=== PATIENT | male | born 1960 | race Two or more races ===

== ENCOUNTER 2025-03-18 08:10 | Outpatient (CLI) | payer MEDICARE, BC ==
--- NOTE | 2025-03-18 10:20 | RADIOLOGY REPORT ---
PROCEDURE: MR MRI LUMBAR SPINE INDICATION: LUMBAR SPONDYLOSIS, low back pain. Exam Date: 03/18/2025 08:31 AM COMPARISON: None TECHNIQUE: MRI lumbar spine without intravenous contrast. FINDINGS: No fracture or listhesis of the lumbar spine. The conus terminates at L1. There is slight thoracolumb ar scoliosis. L1-L2: There is disc desiccation with slight loss of disc height. There are Schmorl's nodes in the ad jacent endplates. There is a circumferential broad disc bulge with endplate hypertrophy. There is b ilateral facet and ligamentum flavum hypertrophy. No significant spinal canal stenosis. There is mild bilateral neural foraminal stenosis. L2-L3: There is disc desiccation with loss of disc height. Probable vacuum phenomenon in the disc. T here are Schmorl's nodes of the adjacent endplates. There are Modic type 1 and 2 changes of the adjac ent endplates. There is a circumferential broad disc bulge with endplate hypertrophy, most prominent in the left pre foraminal and foraminal regions. There is bilateral facet and ligamentum flavum hyper trophy. The AP dimension of the spinal canal is narrowed to 5 mm, in part related to prominence of t he posterior epidural fat. There is mild right and moderate left neural foraminal stenosis. There is partial effacement of the left lateral recess. L3-L4: There is disc desiccation with loss of disc height. Probable vacuum phenomenon in the disc. Th ere are Schmorl's nodes in the adjacent endplates. There are Modic type 1 and 2 changes in the adjace nt endplates. There is a circumferential broad disc bulge with endplate hypertrophy. There is bilate ral facet and ligamentum flavum hypertrophy. The AP dimension of the spinal canal measures 4.2 mm. T here is partial effacement of the lateral recesses. There is moderate right and mild left neural fora shikha stenosis. L4-L5: There is disc desiccation with loss of disc height. Possible vacuum phenomenon in the disc. Th ere are Modic type 2 changes and morphologic irregularities of the adjacent endplates. There is a ci rcumferential broad disc bulge with endplate hypertrophy, most prominent in the foraminal regions. T here is bilateral facet and ligamentum flavum hypertrophy. The AP dimension of the spinal canal cade ures 5 mm. There is partial effacement of the lateral recesses. There is moderate right and mild lef t neural foraminal stenosis. L5-S1: There is disc desiccation with near-complete loss of disc height. Probable vacuum phenomenon in the disc. There is a circumferential broad disc bulge with endplate hypertrophy, most prominent in the foraminal and lateral regions. There is bilateral facet and ligamentum flavum hypertrophy. The AP dimension of the spinal canal measures 7.5 mm. There is moderate to severe bilateral neural fora shikha stenosis. IMPRESSION: 1. No fracture of the lumbar spine. 2. Advanced degenerative disc disease and facet arthropathy with moderate to severe spinal canal sten osis at L3-L4, moderate spinal canal stenosis at L2-L3 and L4-L5, [id number] spinal canal steno sis at L5-S1. 3. Significant neural foraminal stenosis at L2-L3 on the left, L3-L4 on the right, L4-L5 on the right , and L5-S1 bilaterally. Additionally, there is partial effacement of the lateral recesses bilateral ly at L3-L4 and L4-L5, and on the left at L2-L3. These findings May correspond to lower extremity rad icular symptoms in the left L2, bilateral L3, bilateral L4, and bilateral L5 nerve root distributions .
== END 2025-03-18 23:59 | disposition home or self-care (01) ==
LOC: MRI02 08:10
PROVIDERS: ATTEND Nurse Practitioner
DX: M51.370 Other intervertebral disc degeneration, lumbosacral region with discogenic back pain only (principal); M47.817 Spondylosis without myelopathy or radiculopathy, lumbosacral region; M48.07 Spinal stenosis, lumbosacral region
CPT/HCPCS: 72148

== ENCOUNTER 2025-07-06 13:14 | Emergency (ER) | payer MEDICARE, BC ==
[~2025-07-06] VITALS: Ht 172.7 cm; Wt 102.3 kg
[2025-07-06 13:16] VITALS: TEMP 98.2
--- NOTE | 2025-07-06 13:25 | Physician Documentation ---
History of Present Illness ~ Chief Complaint: Hypertension Stated Complaint: HIGH BLOOD PRESSURE Time Seen by MD: 17:21 HPI Patient is a very pleasant 65-year-old male that presents to the emergency department accompanied by his daughter for evaluation of chest discomfort times 4-5 months. Patient denies any shortness the breath chest pain with radiation but just a pressure almost like a heartburn per patient. Patient reports he has a history of hypertension although he has not taken any antihypertensives for 2- 3 years. Patient reports that he has a significant caffeine tobacco and Zyn pouch user. Patient denies any illicit drugs or significant alcohol consumption at this time. Patient denies fever chills nausea vomiting diarrhea at this time. Medication Reconciliation Allergies: Coded Allergies: No Known Allergies (Unverified , 07/06/25) Physical Exam Vital Signs: Temperature: 98.2, Source: Temporal, Heart Rate: 72, Respiratory Rate: 18, BP: 238/132, Pulse Oximetry: 98, Weight: 102.300 Oxygen Flow Rate: 0 Progress Progress Note Doctor Ac I evaluated this patient after being seen for medical screening exam. He initially presented with chest pain and elevated blood pressure however when I see him he tells me that he told staff that he had chest pain so he can get seen sooner. He denies any chest pain at all he has asymptomatic hypertension which he has been noticing at home and he is concerned with his upcoming back surgery that he had will have to have his surgery deferred. He does not have a primary care physician. Is not on any antihypertensives. He was a heavy tobacco user however has cut back over the last few years in his now smoking 2 cigarettes a day and using 1 can was in daily. He is happy with his nicotine progress. He denies any heavy alcohol use. He is on no medications. Results/Orders Results/Orders Orders - MIGUEL WITT MD Chest,Single View (07/06/25 14:06) Monitor (07/06/25 13:23) Saline Lock (07/06/25 13:23) Oxygen (07/06/25 13:23) Completed Orders - MIGUEL WITT MD Chest,Single View (07/06/25 14:06) Cbc/Diff (07/06/25 13:23) BMP (07/06/25 13:23) PBNP (07/06/25 13:23) Electrocardiogram (07/06/25 13:23) Hs Troponin I W Calculations (07/06/25 13:23) Hs Troponin I W Calculations (07/06/25 15:23) Hs Troponin I W Calculations (07/06/25 16:23) Vital Signs 07/06/25 07/06/25 07/06/25 13:16 16:38 16:42 Temp 98.2 Pulse 72 67 Resp 18 18 19 B/P (MAP) 238/132 211/121 (151) Pulse Ox 98 98 O2 Flow Rate 0 0 Laboratory Tests Test 07/06/25 13:32 07/06/25 15:42 07/06/25 16:41 White Blood Count 6.7 Red Blood Count 4.86 Hemoglobin 15.5 Hematocrit 46.6 Mean Corpuscular Volume 96.0 Mean Corpuscular Hemoglobin 31.9 H Mean Corpuscular Hemoglobin Concent 33.3 Red Cell Distribution Width 14.8 H Platelet Count 159 Mean Platelet Volume 7.4 Neutrophils (%) (Auto) 54.4 Lymphocytes (%) (Auto) 29.4 Monocytes (%) (Auto) 12.8 H Eosinophils (%) (Auto) 2.3 Basophils (%) (Auto) 1.1 H Neutrophils # (Auto) 3.6 Lymphocytes # (Auto) 2.0 Monocytes # (Auto) 0.9 Eosinophils # (Auto) 0.2 Basophils # (Auto) 0.1 CBC Comment Sodium Level 139 Potassium Level 4.3 Chloride Level 103 Carbon Dioxide Level 29.0 Anion Gap 7 L Blood Urea Nitrogen 19 H Creatinine 0.96 Estimated GFR/1.73 m2 78 BUN/Creatinine Ratio 19.8 Glucose Level 112 H Calcium Level 9.1 Troponin I High Sensitivity 12 15 17 Pro-B-Type Natriuretic Peptide 110 Albumin 4.1 Chemistry Comments Troponin I High Sens Percent Delta 25 13 Troponin I Hi Sens Absolute Change 3 2 EKG/XRAY/CT/US/VASC/MRI EKG : Additional Comment EKG independently interpreted by myself time 1:24 p.m. indication reported chest pain normal sinus rhythm rate 71 normal axis normal intervals no ST or T-wave abnormality Medical Decision Making Additional information obtaine: N/A Findings 65-year-old male presenting for asymptomatic hypertension. He has no PCP but he does have follow up appointment upcoming. I started him on antihypertensives tonight since he has not yet established Differential Dx:Considerations: Include CHF, Include HTN, essential, Include HTN, accelerated, Include HTN, malignant Departure Disposition: 01 HOME / SELF CARE / HOMELESS Impression: Primary Impression: Benign hypertension Additional Instructions: Please follow up with your primary care physician. Take your blood pressure twice daily once in the morning once in the evening and return to the emergency department if you develop any chest pain or shortness of breath headache or blurry vision Referrals: NO PRIMARY CARE PROVIDER (PCP) Prescriptions Amlodipine* (Norvasc*) 2.5 Mg Tablet 1 TAB PO DAILY for 30 Days, #30 TAB Prov: MIGUEL WITT MD 07/06/25 Lisinopril (LISINOPRIL) 10 Mg Tablet 1 TAB PO DAILY for 30 Days, #30 TAB 0 Refills Prov: MIGUEL WITT MD 07/06/25 Signature Scribe Signature: na Attestation: DALLAS Blancas Jul 06, 2025 13:25 MIGUEL WITT MD Jul 06, 2025 18:07
--- NOTE | 2025-07-06 13:26 | ELECTROCARDIOGRAPH REPORT ---
[facility] Test Date: 2025-07-06 Test Time: 13:24:29 Pat Name: EMELIA JANSEN Department: EMERGENCY ROOM Room: Gender: M [employer]: : 1960 Requested By: MIGUEL WITT Order Number: [id number] Reading MD: Measurements Intervals [place] Rate: 71 P: 49 WA: 162 QRS: 60 QRSD: 98 T: 59 QT: 408 QTc: 444 Interpretive Statements Sinus rhythm Please click the below link to view image of tracing.
[2025-07-06 14:09] LABS: MEAN PLATELET VOLUME 7.4 FL (7.4-10.4); RED CELL DISTRIBUTION WIDTH 14.8 % (11.5-14.5)
--- NOTE | 2025-07-06 14:15 | RADIOLOGY REPORT ---
EXAM: DI CHEST,SINGLE VIEW Indication: CP Technique: Single frontal view of the chest was obtained Comparison: None FINDINGS: Lines and Tubes: None Lungs: No focal consolidation. Pleura: No effusion. No pneumothorax. Cardiomediastinal contours: Unremarkable Bones: No acute osseous abnormality. IMPRESSION: No acute cardiopulmonary disease.
[2025-07-06 14:24] LABS: CREATININE 0.96 MG/DL (0.60-1.10); PRO BRAIN NATRIURETIC PEPTIDE 110 PG/ML (0-125); TOTAL CARBON DIOXIDE 29.0 MMOL/L (24-32); eCRCL 73 ML/MIN; eGFR 78 ML/MIN
[2025-07-06] MEDS ORDERED: LISI1TAB49 PO (18:24)
[2025-07-06] MEDS ORDERED: AMLO2.5T2 PO (18:27)
[2025-07-06] MEDS ORDERED: LISI10TA27 PO (18:27)
[2025-07-06 18:45] VITALS: BP 186/119; PULSE 68; RESP 16; O2SAT 98
== END 2025-07-06 18:57 | disposition home or self-care (01) ==
LOC: ER 13:14
DX: I10 Essential (primary) hypertension (principal)
CPT/HCPCS: 36415; 71045; 80048; 83880; 84484; 85025; 93005; 99285